=== PATIENT | female | born 1985 | race Caucasian/White ===

== ENCOUNTER 2019-06-12 12:50 | Emergency (ER) | payer SELFPAY ==
[~2019-06-12] VITALS: Ht 167.6 cm; Wt 64.0 kg
[2019-06-12 14:36] VITALS: BP 163/93
== END 2019-06-12 14:38 | disposition home or self-care (01) ==
LOC: ER 13:18
DX: R04.0 Epistaxis (principal); Z94.4 Liver transplant status
CPT/HCPCS: 30901; 99284